=== PATIENT | female | born 1990 | race Caucasian/White ===

== ENCOUNTER → 2017-07-22 | Outpatient (REF) | payer OTHER ==
[2017-07-22 21:11] LABS: AMYLASE 40 U/L (25-115)
[2017-07-23 14:26] LABS: CONTROL LINE HPYORI INT CTR LINE PRESENT
[2017-07-25 00:06] LABS: ENDOMYSIAL ABY IgA Negative (Negative)
== END ==
LOC: M LAB REF 17:40
PROVIDERS: ATTEND Nurse Practitioner Adult Health
DX: R19.7 Diarrhea, unspecified (principal); D50.9 Iron deficiency anemia, unspecified; R10.11 Right upper quadrant pain

== ENCOUNTER → 2017-10-03 | Outpatient (REF) | payer OTHER | LOC: M LAB REF 13:38 | PROVIDERS: ATTEND Internal Medicine Gastroenterology | DX: R19.7 Diarrhea, unspecified (principal) ==

== ENCOUNTER 2017-11-08 12:05 | Day surgery (SDC) | payer OTHER ==
[2017-11-08] MEDS: NS 1,000 ML IV (13:28)
[2017-11-08] MEDS ORDERED: PROPOFOL 200 MG/20 ML VIAL As Ordered ×3 (14:16→14:25)
[2017-11-08] MEDS ORDERED: LIDOCAINE 2% INJ 100 MG/5 ML SDV (FOR ANES.) As Ordered (14:16)
== END 2017-11-08 16:05 | disposition home or self-care (01) ==
LOC: M OPP 12:05
DX: R19.7 Diarrhea, unspecified (principal); D12.8 Benign neoplasm of rectum; K64.8 Other hemorrhoids; K30 Functional dyspepsia; K29.70 Gastritis, unspecified, without bleeding; K21.9 Gastro-esophageal reflux disease without esophagitis; D64.9 Anemia, unspecified; J20.9 Acute bronchitis, unspecified; R06.83 Snoring; Z91.048 Other nonmedicinal substance allergy status; Z79.899 Other long term (current) drug therapy; Z80.3 Family history of malignant neoplasm of breast
CPT/HCPCS: 45380

== ENCOUNTER 2018-07-21 13:03 | Emergency (ER) | payer OTHER | END 2018-07-21 14:07 | disposition home or self-care (01) | LOC: M ED 13:03 | DX: S06.0X0A Concussion without loss of consciousness, initial encounter (principal); S00.83XA Contusion of other part of head, initial encounter; W22.8XXA Striking against or struck by other objects, initial encounter; Y92.89 Other specified places as the place of occurrence of the external cause; Y99.0 Civilian activity done for income or pay; K21.9 Gastro-esophageal reflux disease without esophagitis; Z79.899 Other long term (current) drug therapy; Z79.3 Long term (current) use of hormonal contraceptives; Z91.048 Other nonmedicinal substance allergy status | CPT/HCPCS: 99283 ==

== ENCOUNTER 2018-12-25 10:03 | Emergency (ER) | payer OTHER ==
[~2018-12-25] VITALS: Ht 154.9 cm; Wt 106.8 kg
[~2018-12-25 10:03] MED LIST: AMOX875T PO; OMEP40CA2 PO; TRINTAB PO; dayquil PO
[2018-12-25 10:04] VITALS: BP 137/101
--- NOTE | 2018-12-25 12:17 | REP ---
Right lower extremity deep vein duplex ultrasound for right calf pain: The deep veins demonstrate normal compression, normal Doppler color flow and normal Doppler waveforms with respiration and augmentation from the popliteal vein to the common femoral vein. Impression: There is no deep vein thrombus. 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
[2018-12-25] MEDS ORDERED: IBUP80TA PO (12:52)
== END 2018-12-25 12:56 | disposition home or self-care (01) ==
LOC: M ED 10:03
DX: R03.0 Elevated blood-pressure reading, without diagnosis of hypertension (principal); M79.661 Pain in right lower leg; R51 Headache; K21.9 Gastro-esophageal reflux disease without esophagitis; Z91.048 Other nonmedicinal substance allergy status; Z79.899 Other long term (current) drug therapy; Z79.3 Long term (current) use of hormonal contraceptives

== ENCOUNTER → 2020-07-15 | Outpatient (REF) | payer OTHER ==
[~2020-07-15] MED LIST changes: +IBUP80TA PO; -OMEP40CA2 PO; +OMEP40CA97 PO
== END ==
LOC: M LAB REF 12:33
PROVIDERS: ATTEND Physician Assistant
DX: J02.9 Acute pharyngitis, unspecified (principal)

== ENCOUNTER 2020-10-20 18:48 | Emergency (ER) | payer OTHER ==
[~2020-10-20] VITALS: Ht 154.9 cm; Wt 118.2 kg
[2020-10-20 20:30] LABS: BASO % 0.2 % (0.0-1.0); HEMATOCRIT 35.6 % (36.0-47.0); HEMOGLOBIN 9.7 g/dl (12.0-15.5); LYMPH # 1.2 10^3/uL (1.5-5.0); LYMPH % 10.7 % (24.0-44.0); MEAN CORPUSCULAR HEMOGLOBIN 17.1 pg (27.0-33.0); MEAN CORPUSCULAR HGB CONC 27.2 g/dl (32.0-36.5); MEAN CORPUSCULAR VOLUME 62.8 fl (80.0-96.0); MONO # 0.6 10^3/uL (0.0-0.8); MONO % 5.2 % (0.0-5.0); NEUTROPHILS # 9.4 10^3/uL (1.5-8.5); NEUTROPHILS % 83.3 % (36.0-66.0); PLATELET COUNT, AUTOMATED 441 10^3/uL (150-450); RED BLOOD COUNT 5.67 10^6/uL (4.00-5.40); WHITE BLOOD COUNT 11.3 10^3/uL (4.0-10.0)
[2020-10-20 20:34] LABS: INR 0.96
[2020-10-20 20:37] LABS: D-DIMER QUANT 1164.57 ng/ml (<500)
[2020-10-20 20:44] LABS: ALBUMIN 3.2 GM/DL (3.2-5.2); ALT/SGPT 20 U/L (12-78); BILIRUBIN,TOTAL 0.3 MG/DL (0.2-1.0); BLOOD UREA NITROGEN 16 MG/DL (7-18); CALCIUM LEVEL 8.9 MG/DL (8.5-10.1); CARBON DIOXIDE LEVEL 22 MEQ/L (21-32); CHLORIDE LEVEL 108 MEQ/L (98-107); CK-MB VALUE MASS < 1.0 NG/ML (<3.6); CPK CREATINE PHOSPHOKINASE 29 U/L (26-192); CREATININE FOR GFR 1.07 MG/DL (0.55-1.30); FERRITIN 4 NG/ML (8-252); GLOMERULAR FILTRATION RATE > 60.0 (>60); GLUCOSE, FASTING 175 MG/DL (70-100); LDH LACTATE DEHYDROGENASE 146 U/L (84-246); MB/CK RELATIVE INDEX 3.45 (< OR =4); POTASSIUM SERUM 3.8 MEQ/L (3.5-5.1); SODIUM LEVEL 138 MEQ/L (136-145); TOTAL PROTEIN 7.6 GM/DL (6.4-8.2); TROPONIN I < 0.02 NG/ML (< 0.10)
[2020-10-20] MEDS: COMBIVENT RESPIMAT 100-20MCG INHALER 4GM INH SCH (20:57)
--- NOTE | 2020-10-20 21:39 | REPVR ---
PROCEDURE INFORMATION: Exam: XR Chest, 1 View Exam date and time: 10/20/2020 8:45 PM Age: 30 years old Clinical indication: Cough; Additional info: Coronavirus workup TECHNIQUE: Imaging protocol: XR of the chest Views: 1 view. COMPARISON: No relevant prior studies available. FINDINGS: Lungs: Unremarkable. No consolidation. No pulmonary edema. Pleural space: Unremarkable. No pleural effusion or pneumothorax is identified. Heart/Mediastinum: Unremarkable. No cardiomegaly. Bones/joints: Unremarkable. IMPRESSION: No acute findings. Electronically signed by: Humberto Cheema On 10/20/2020 21:39:15 PM
[2020-10-20] MEDS ORDERED: NS 1,000 ML IV ONE (22:00)
[2020-10-20] MEDS ORDERED: ISOVUE-370 76% 100ML VIAL As Ordered ONE (22:14)
--- NOTE | 2020-10-20 22:47 | REPVR ---
PROCEDURE INFORMATION: Exam: CT Angiography Chest With Contrast Exam date and time: 10/20/2020 10:24 PM Age: 30 years old Clinical indication: Pain and abnormal findings; Abnormal diagnostic tests; Elevated d-dimer; Shortness of breath; Chest pain; Additional info: SOB, tachycardia, cp, covid, d-dimer TECHNIQUE: Imaging protocol: Computed tomographic angiography of the chest with intravenous contrast. 3D rendering (Not supervised by radiologist): MIP and/or 3D reconstructed images were created by the technologist. Radiation optimization: All CT scans at this facility use at least one of these dose optimization techniques: automated exposure control; mA and/or kV adjustment per patient size (includes targeted exams where dose is matched to clinical indication); or iterative reconstruction. Contrast material: ISOVUE 370; Contrast volume: 100 ml; Contrast route: INTRAVENOUS (IV); COMPARISON: CR PORTABLE CHEST X-RAY 10/20/2020 8:47 PM FINDINGS: Limitations: Respiratory motion artifact degrades the image quality. Pulmonary arteries: There is no pulmonary embolism in the main, lobar, or segmental pulmonary arteries. Respiratory motion artifact limits the assessment of the subsegmental pulmonary arteries. Aorta: The thoracic aorta is intact and patent. There is no thoracic aortic aneurysm, pseudoaneurysm, penetrating atherosclerotic ulcer, intramural hematoma, or dissection. Great vessels off aortic arch: The brachiocephalic artery, imaged proximal portions of the common carotid arteries, imaged proximal portions of the vertebral arteries, and subclavian arteries are intact. No stenosis or occlusion of these vessels is noted. Tracheobronchial tree: Intact and patent. Lungs: There are small airspace and tree-in-bud opacities in the posterior aspect of the superior segments of both lower lobes. No lobar consolidation or ground-glass opacification is noted. Pleural space: Unremarkable. No pneumothorax. No pleural effusion. Heart: No cardiomegaly or pericardial effusion. The ratio of the diameter of the right ventricle to the diameter of the left ventricle measures less than 1, which is within normal limits and there is no CT evidence for a right ventricular strain. Mediastinal space: No mediastinal mass, fluid collection, or pneumomediastinum. Lymph nodes: No enlarged lymph nodes. Diaphragm: Intact. Gallbladder and bile ducts: The gallbladder is contracted. No calcified gallstones are seen. No dilation of the bile ducts is noted. No calcified stones are seen in the common bile duct. Bones/joints: There is no fracture or dislocation. No suspicious osteolytic or osteoblastic lesion. Soft tissues: Unremarkable. No soft tissue fluid collection. IMPRESSION: 1. No pulmonary embolism in the main, lobar, or segmental pulmonary arteries. Respiratory motion artifact limits the assessment of the subsegmental pulmonary arteries. 2. Small airspace and tree-in-bud opacities in the posterior aspect of the superior segments of both lower lobes, which may indicate an infectious bronchiolitis or pneumonia. Imaging features are atypical or uncommonly reported for COVID-19 pneumonia. Alternative diagnoses should be considered. (Reference: William) REFERENCES: William Donahue, et al., Radiological Society of [place] Expert Consensus Statement on Reporting Chest CT Findings Related to COVID-19. Endorsed by the Society of Thoracic Radiology, the [place] [employer], and RSNA. Published January 10, 2020. Electronically signed by: Humberto Cheema On 10/20/2020 22:47:19 PM
[2020-10-20 23:25] VITALS: BP 122/80
--- NOTE | 2020-10-22 05:58 | ECGEPIP ---
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
== END 2020-10-20 23:35 | disposition home or self-care (01) ==
LOC: M ED 18:48
DX: J18.9 Pneumonia, unspecified organism (principal); U07.1 COVID-19; K21.9 Gastro-esophageal reflux disease without esophagitis; Z79.899 Other long term (current) drug therapy; Z79.3 Long term (current) use of hormonal contraceptives; Z91.048 Other nonmedicinal substance allergy status
CPT/HCPCS: 36600; 71045; 71275; 80053; 82550; 82553; 82728; 82803; 83605; 83615; 84484; 85025; 85379; 85384; 85610; 85730; 86140; 87040; 93005; 93041; 94640; 96360; 99285; Q9967

== ENCOUNTER 2021-01-10 18:12 | Emergency (ER) | payer OTHER ==
[~2021-01-10] VITALS: Ht 154.9 cm; Wt 113.6 kg
[2021-01-10 19:03] LABS: BASO # 0.1 10^3/uL (0.0-0.2); BASO % 0.7 % (0.0-1.0); EOS # 0.3 10^3/uL (0.0-0.5); EOS % 2.8 % (0.0-3.0); HEMATOCRIT 32.3 % (36.0-47.0); LYMPH # 2.1 10^3/uL (1.5-5.0); LYMPH % 24.1 % (24.0-44.0); MEAN CORPUSCULAR HEMOGLOBIN 18.3 pg (27.0-33.0); MEAN CORPUSCULAR HGB CONC 27.9 g/dl (32.0-36.5); MEAN CORPUSCULAR VOLUME 65.8 fl (80.0-96.0); MONO # 0.7 10^3/uL (0.0-0.8); MONO % 7.8 % (2.0-8.0); NEUTROPHILS # 5.7 10^3/uL (1.5-8.5); NEUTROPHILS % 64.1 % (36.0-66.0); PLATELET COUNT, AUTOMATED 385 10^3/uL (150-450); RED BLOOD COUNT 4.91 10^6/uL (4.00-5.40); WHITE BLOOD COUNT 8.9 10^3/uL (4.0-10.0)
--- NOTE | 2021-01-10 19:11 | REP ---
INDICATION: DYSPNEA/COUGH. COMPARISON: Comparison chest x-ray October 20, 2020. TECHNIQUE: Two views.. FINDINGS: The lungs are well inflated and free of infiltrate. The pleural angles are sharp. The heart size is normal. Pulmonary vasculature is not increased. No significant bony abnormality is seen. IMPRESSION: Negative chest x-ray. <Electronically signed by Roldan Blake > 01/10/21 [id number]
[2021-01-10 19:13] LABS: INR 1.02; PROTHROMBIN TIME 13.6 SECONDS (12.5-14.3)
[2021-01-10 19:15] LABS: D-DIMER QUANT 1263.48 ng/ml (<500)
[2021-01-10 19:28] LABS: BLOOD UREA NITROGEN 16 MG/DL (7-18); CALCIUM LEVEL 8.6 MG/DL (8.5-10.1); CARBON DIOXIDE LEVEL 22 MEQ/L (21-32); CHLORIDE LEVEL 112 MEQ/L (98-107); CREATININE FOR GFR 0.95 MG/DL (0.55-1.30); GLOMERULAR FILTRATION RATE > 60.0 (>60); GLUCOSE, FASTING 127 MG/DL (70-100); POTASSIUM SERUM 3.5 MEQ/L (3.5-5.1); SODIUM LEVEL 140 MEQ/L (136-145)
[2021-01-10] MEDS ORDERED: NS 1,000 ML IV ONE (22:10)
[2021-01-10] MEDS ORDERED: KETOROLAC 30 MG/ML 1ML VIAL IV ONE (22:10)
[2021-01-10] MEDS ORDERED: ISOVUE-370 76% 100ML VIAL As Ordered ONE (22:15)
--- NOTE | 2021-01-10 23:36 | REPVR ---
PROCEDURE INFORMATION: Exam: CT Angiography Chest With Contrast Exam date and time: 01/10/2021 10:39 PM Age: 30 years old Clinical indication: Abnormal findings; Abnormal diagnostic tests; Elevated d-dimer; Cough and shortness of breath; Additional info: SOB, cough, cp, elev d dimer TECHNIQUE: Imaging protocol: Computed tomographic angiography of the chest with contrast. 3D rendering (Not supervised by radiologist): MIP and/or 3D reconstructed images were created by the technologist. Radiation optimization: All CT scans at this facility use at least one of these dose optimization techniques: automated exposure control; mA and/or kV adjustment per patient size (includes targeted exams where dose is matched to clinical indication); or iterative reconstruction. Contrast material: ISOVUE 370; Contrast volume: 75 ml; Contrast route: INTRAVENOUS (IV); COMPARISON: CT ANGIO CHEST 10/20/2020 10:20 PM FINDINGS: Pulmonary arteries: There is opacification of the pulmonary arteries with no evidence of pulmonary embolus. Aorta: There is opacification of the aorta which appears intact. Lungs: Clear appearing lungs. Pleural spaces: There is no evidence of pneumothorax or pleural effusion. Heart: The heart is top-normal in size and there is no pericardial effusion. Lymph nodes: Unremarkable. No enlarged lymph nodes. Bones/joints: There is no evidence of bony abnormality. Soft tissues: Unremarkable. IMPRESSION: No evidence of pulmonary embolus. Electronically signed by: Gurpreet Fierro On 01/10/2021 23:36:21 PM
[2021-01-11 00:18] VITALS: BP 131/72
== END 2021-01-11 00:21 | disposition home or self-care (01) ==
LOC: M ED 18:12
DX: R06.00 Dyspnea, unspecified (principal); R07.89 Other chest pain; Z91.048 Other nonmedicinal substance allergy status; Z79.899 Other long term (current) drug therapy; Z79.3 Long term (current) use of hormonal contraceptives
CPT/HCPCS: 71046; 71275; 80048; 85025; 85379; 85610; 96361; 96374; 99283; J1885; Q9967

== ENCOUNTER 2022-09-29 13:44 | Emergency (ER) | payer OTHER ==
[~2022-09-29] VITALS: Ht 154.9 cm; Wt 113.6 kg
[~2022-09-29 13:44] MED LIST changes: +OMEP40CA4 PO; -OMEP40CA97 PO
[2022-09-29 13:45] VITALS: BP 149/82
[2022-09-29] MEDS ORDERED: ACETAMINOPHEN 325 MG TAB PO ONE (14:05)
[2022-09-29] MEDS ORDERED: ALBUTEROL 90 MCG/ACT 8GM HFA INHALER INH ONE (14:25)
[2022-09-29] MEDS ORDERED: NS 1,000 ML IV ONE (14:25)
[2022-09-29 15:02] LABS: BASO # 0.1 10^3/uL (0.0-0.2); BASO % 0.6 % (0.0-1.0); EOS # 0.8 10^3/uL (0.0-0.5); HEMATOCRIT 35.4 % (36.0-47.0); HEMOGLOBIN 9.7 g/dl (12.0-15.5); LYMPH # 0.8 10^3/uL (1.5-5.0); LYMPH % 8.6 % (24.0-44.0); MEAN CORPUSCULAR HEMOGLOBIN 17.5 pg (27.0-33.0); MEAN CORPUSCULAR HGB CONC 27.4 g/dl (32.0-36.5); MEAN CORPUSCULAR VOLUME 63.8 fl (80.0-96.0); MONO # 1.1 10^3/uL (0.0-0.8); MONO % 11.7 % (2.0-8.0); NEUTROPHILS # 6.5 10^3/uL (1.5-8.5); NEUTROPHILS % 69.4 % (36.0-66.0); PLATELET COUNT, AUTOMATED 414 10^3/uL (150-450); RED BLOOD COUNT 5.55 10^6/uL (4.00-5.40); WHITE BLOOD COUNT 9.4 10^3/uL (4.0-10.0)
[2022-09-29 15:42] LABS: ALBUMIN 2.9 G/DL (3.2-5.2); ALKALINE PHOSPHATASE 92 U/L (46-116); ALT/SGPT 17 U/L (7.0-40); AST/SGOT 28 U/L (<34); BILIRUBIN,TOTAL 0.2 MG/DL (0.3-1.2); BLOOD UREA NITROGEN 16 MG/DL (9-23); CALCIUM LEVEL 8.8 MG/DL (8.5-10.1); CARBON DIOXIDE LEVEL 22 MMOL/L (20-31); CHLORIDE LEVEL 106 MMOL/L (98-107); CREATININE FOR GFR 0.83 MG/DL (0.55-1.30); GLOMERULAR FILTRATION RATE > 60.0 (>60); GLUCOSE, FASTING 115 MG/DL (60-100); POTASSIUM SERUM 4.5 MMOL/L (3.5-5.1); SODIUM LEVEL 139 MMOL/L (136-145); TOTAL PROTEIN 7.2 G/DL (5.7-8.2)
[2022-09-29] MEDS ORDERED: methylPREDNISolone 125MG 2ML VIAL IV ONE (15:45)
[2022-09-29] MEDS ORDERED: IBUPROFEN 600MG TAB PO ONE (15:45)
[2022-09-29] MEDS ORDERED: OSEL75CA PO (16:33)
[2022-09-29] MEDS ORDERED: PRED20TA PO (16:33)
[2022-09-29] MEDS ORDERED: VENTAER INH (16:33)
== END 2022-09-29 16:51 | disposition home or self-care (01) ==
LOC: M ED 13:44
DX: J09.X2 Influenza due to identified novel influenza A virus with other respiratory manifestations (principal); J20.9 Acute bronchitis, unspecified; E66.9 Obesity, unspecified; R51.9 Headache, unspecified; K21.9 Gastro-esophageal reflux disease without esophagitis; Z79.899 Other long term (current) drug therapy; Z91.89 Other specified personal risk factors, not elsewhere classified
CPT/HCPCS: 71046; 80053; 85025; 87428; 94640; 96361; 96374; 99284; J2930

== ENCOUNTER → 2022-11-25 | Outpatient (REF) | payer OTHER ==
[~2022-11-25] MED LIST changes: +OSEL75CA PO; +PRED20TA PO; +VENTAER INH
[2022-11-25 18:03] LABS: HEMATOCRIT 31.5 % (36.0-47.0)
[2022-11-25 18:06] LABS: PERCENT SATURATION 2.6 % (13.2-45.0)
[2022-11-25 18:07] LABS: FERRITIN 1.7 NG/ML (7.3-270.7)
[2022-11-30 10:07] LABS: HEMOGLOBIN A2 QUANTITATIVE 2.1 % (1.8-3.2)
== END ==
LOC: M LAB REF 16:28
PROVIDERS: ATTEND Nurse Practitioner Adult Health
DX: D50.9 Iron deficiency anemia, unspecified (principal)

== ENCOUNTER → 2023-01-19 | Outpatient (REF) | payer OTHER ==
[~2023-01-19] MED LIST changes: +ADV250INH; +FERR1TAB8; +NORGTAB2; +PROP60CA; +TOPI100T9
[2023-01-19 19:53] LABS: PERCENT SATURATION 23.1 % (13.2-45.0)
[2023-01-19 19:56] LABS: FERRITIN 13.3 NG/ML (7.3-270.7)
== END ==
LOC: M LAB REF 16:40
PROVIDERS: ATTEND Nurse Practitioner Adult Health
DX: D50.9 Iron deficiency anemia, unspecified (principal)

== ENCOUNTER 2023-12-23 11:28 | Outpatient (CLI) | payer OTHER ==
[~2023-12-23] VITALS: Ht 149.9 cm; Wt 128.0 kg
[2023-12-23] MEDS ORDERED: ACETAMINOPHEN 650MG PO PRIOR TO INFUSION PO ONE (12:00)
[2023-12-23] MEDS ORDERED: diphenhydrAMINE 25MG PO PRIOR TO INFUSION PO ONE (12:00)
[2023-12-23] MEDS: IRON SUCROSE 300 MG in NS 250 ML OVER 90 MIN. IV ONE (12:09)
[2023-12-23 12:19] VITALS: BP 133/63; O2SAT 98
[2023-12-23 13:58] VITALS: BP 130/77; O2SAT 100
== END 2023-12-23 14:00 ==
LOC: M INFU 11:28
PROVIDERS: ATTEND Specialist
DX: D50.9 Iron deficiency anemia, unspecified (principal)
CPT/HCPCS: 96365; 96366; J1756

== ENCOUNTER 2023-12-30 12:00 | Outpatient (CLI) | payer OTHER ==
[2023-12-30 12:00] VITALS: BP 131/61; O2SAT 98
[2023-12-30] MEDS: ACETAMINOPHEN 650MG PO PRIOR TO INFUSION PO ONE (12:11)
[2023-12-30] MEDS: diphenhydrAMINE 25MG PO PRIOR TO INFUSION PO ONE (12:11)
[2023-12-30] MEDS: IRON SUCROSE 300 MG in NS 250 ML OVER 90 MIN. IV ONE (12:42)
[2023-12-30 14:20] VITALS: BP 117/76; O2SAT 99
== END 2023-12-30 14:20 ==
LOC: M INFU 12:00
PROVIDERS: ATTEND Specialist
DX: D50.9 Iron deficiency anemia, unspecified (principal)
CPT/HCPCS: 96365; 96366; J1756

== ENCOUNTER 2024-01-06 12:40 | Outpatient (CLI) | payer OTHER ==
[2024-01-06] MEDS: ACETAMINOPHEN TAB 650MG DOSE (2X325MG) PO ONE (12:47)
[2024-01-06] MEDS: diphenhydrAMINE 25MG CAP PO ONE (12:47)
[2024-01-06 12:50] VITALS: BP 156/68; O2SAT 98
[2024-01-06] MEDS: IRON SUCROSE 300 MG in NS 250 ML OVER 90 MIN. IV ONE (12:51)
[2024-01-06 14:35] VITALS: BP 122/67; O2SAT 100
== END 2024-01-06 14:40 ==
LOC: M INFU 12:40
PROVIDERS: ATTEND Specialist
DX: D50.9 Iron deficiency anemia, unspecified (principal)
CPT/HCPCS: 96365; 96366; J1756